=== PATIENT | female | born 1945 | race Caucasian/White ===

== ENCOUNTER 2024-04-11 10:31 | Outpatient (CLI) | payer MEDICARE, SELFPAY ==
[2024-04-11 11:26] LABS: Prothrombin Time 13.9 Seconds (11.1-14.7)
[2024-04-11 11:27] LABS: Partial Thromboplastin Time 32.1 Seconds (22.3-36.8)
[2024-04-11 11:34] LABS: Anion Gap 13 mmol/L (4-12); Blood Urea Nitrogen 23 mg/dL (7-17); Calcium 9.1 mg/dL (8.4-10.2); Carbon Dioxide 20 mmol/L (22-30); Chloride 100 mmol/L (98-107); Estimated Glomerular Filt Rate 34; Glucose 93 mg/dL (65-110); Potassium 4.3 mmol/L (3.4-5.0); Sodium 133 mmol/L (137-145)
== END 2024-04-11 10:32 | disposition home or self-care (01) ==
PROVIDERS: Anesthesiology; PCP Family Medicine; Visit Provider Obstetrics & Gynecology Gynecology
DX: Z01.818 Encounter for other preprocedural examination (principal); N19 Unspecified kidney failure; Z51.81 Encounter for therapeutic drug level monitoring
CPT/HCPCS: 36415; 80048; 85610; 85730

== ENCOUNTER 2024-04-14 00:16 | Day surgery (SDC) | payer MEDICARE, SELFPAY ==
[2024-04-10 10:28] VITALS: BMI 21.3
--- NOTE | 2024-04-10 11:11 | PC.NURSE ---
Report to the Outpatient Waiting Room, entrance under the green pavilion located off [facility], at time ___6:15AM____ on date __04/14/24 . Planned Procedure Time: __8:15AM . Time changes happen often and if your time is changed the preop area will call you the afternoon before. - You and your visitor will be asked to self-screen and do not enter if you have any COVID symptoms. - A mask is optional within the hospital at this time. Patients may have clear liquids (water, carbonated beverages, clear teas, apple juice) until 3 hours prior to surgery with a maximum of 20 ounces. - No food from midnight until time of surgery. Take the following medications with a SIP of water the morning of surgery: AMIODARONE, METOPROLOL, FLUOXETINE, LEVOTHYROXINE. MAY TAKE HYDROCODONE NEEDED FOR PAIN. DO NOT STOP ANY OF YOUR OTHER PRESCRIPTION MEDICATIONS PRIOR TO SURGERY ?EXCEPT THE FOLLOWING Medications to discontinue per physician HOLD ALL VITAMINS/SUPPLEMENTS 3 DAYS PRE-OP PER ANESTHESIA. Date to take last dose 04/10/24 Please no make-up, nail serbian, hairspray, perfume, deodorant, or body powder the day of surgery. No jewelry (including any body piercings) or valuables the day of surgery, leave them at home. Please take a shower or bath the night before, or the morning of, surgery with an antibacterial soap. Wear comfortable, loose fitting clothing. - Jewelry must be removed prior to entering the operating room. Rings and piercings that are not removed may be cut off. - The hospital will not accept responsibility for valuables. - Please leave all valuables, including medications, at home the day of surgery. If you are going home after surgery, a licensed regional flatbed truck driver must drive you home. - NO public transportation without another adult if you receive anesthesia. - We recommend that an adult stay with you for 24 hours following discharge. - We also recommend that you do not drive, make important decision, drink alcoholic beverages, or take any drugs that were not prescribed by your health care provider for at least 24 hours after your discharge time. Follow any additional instructions given to you from your surgeon. If you or anyone in your household have experienced Covid symptoms in the past week, please notify your surgeon or the nurse liaison at the phone number below for possible testing. Telephone instructions given to ____PATIENT and asked if any additional questions and then verbalized understanding. Patient advised to call surgeon office or pre surgery nurse liaison [phone] if any additional questions.
[2024-04-14 06:25] VITALS: BP 138/66; PULSE 73; RESP 14; TEMP 36.8; O2SAT 100; BMI 22.7
--- NOTE | 2024-04-14 07:20 | WPDHPUPDATE1 ---
History and Physical Update Update Date/Time: 04/14/24 07:20 History and Physical has been reviewed, including an updated exam of the patient. There are NO changes in the patient's condition. Risks, benefits, and alternatives have been discussed and questions answered. Patient agrees to proceed with procedure.
--- NOTE | 2024-04-14 07:20 | PM.HPGS ---
History of Present Illness History of Present Illness Consent: Risks, benefits, and alternatives have been discussed and questions answered. Patient agrees to proceed with procedure. Chief complaint: perineal scarring Narrative: Haritha Cavanaugh is a 78 year old female with complete labial agglutination. Patient has tried Estrace cream and there was been no separation. Plan is to proceed with surgical separation. Plan postop Estrace cream and crisco. The risks recurrence, injury to surrounding tissue, and infection were discussed. Patient voiced understanding and agrees to proceed. Review of Systems Review of Systems: not repeated day of surgery; patient states no changes in status [facility] Past Medical History Medical History (Updated 04/14/24 @ 07:25 by Alicia Aguilera MD) Atrial fibrillation Gout HTN (hypertension) Hypothyroid Migraines (normal spontaneous vaginal delivery) x2 Pacemaker placed 2023 Rectal vaginal fistula repair 2021 Surgical History Surgical History (Updated 04/14/24 @ 07:24 by Alicia Aguilera MD) Status post D&C Status post total abdominal hysterectomy and bilateral salpingo-oophorectomy Social History Social History Smoking status: Never smoker Living arrangements: alone Spiritual care concerns: No Meds Home Medications and Allergies Home Medications Medication Instructions Recorded Confirmed Type amiodarone 200 mg tablet 200 mg PO QAM 04/10/24 04/14/24 History aspirin 81 mg tablet,delayed 81 mg PO DAILY 04/10/24 04/10/24 History release (Adult Low Dose Aspirin) diclofenac sodium 1 % topical gel 1 g topical BID PRN Pain 04/10/24 04/10/24 History esomeprazole magnesium 40 mg 40 mg PO DAILY 04/10/24 04/10/24 History capsule,delayed release estradiol 0.01% (0.1 mg/gram) 1 appful vaginal BID 04/10/24 04/10/24 History vaginal cream fluoxetine 10 mg capsule 10 mg PO QAM 04/10/24 04/14/24 History hydrocodone 5 mg-acetaminophen 325 1 tablet PO Q6-8H PRN Pain 04/10/24 04/10/24 History mg tablet levothyroxine 75 mcg tablet 75 mcg PO QAM 04/10/24 04/14/24 History losartan 25 mg tablet 25 mg PO HS 04/10/24 04/10/24 History magnesium oxide 400 mg (241.3 mg 800 mg PO DAILY 04/10/24 04/10/24 History magnesium) tablet metoprolol succinate 50 mg 50 mg PO BID 04/10/24 04/14/24 History tablet,extended release 24 hr spironolactone 25 mg tablet 25 mg PO QAM 04/10/24 04/10/24 History tizanidine 2 mg tablet 2 mg PO TID PRN Muscle Spasm 04/10/24 04/10/24 History Allergies Allergy/AdvReac Type Severity Reaction Status Date / Time penicillin G Allergy Itching Verified 04/14/24 07:17 [id number] Reductase AdvReac Muscle Verified 04/14/24 07:17 Inhibitor Pain, fatigue, ahuja Exam Const: General: healthy appearing and alert Orientation/consciousness: patient oriented x3 Resp: Effort & Inspection: normal respiratory effort GI: GI Palp: Yes Soft to palpation, No Tenderness to palpation present (GI) and No Palpable mass present : External Female Exam: other ( complete fusion of all midline structures with agglutination) Neuro: General: patient oriented x3 Assessment and Plan Assessment and plan (1) Labia minora agglutination: Code(s): Q52.5 - Fusion of labia Status: Acute Assessment and Plan: complete fusion of the labia minora labia majora
[2024-04-14] MEDS: LACTATED RINGERS 1,000 ML 30 ML IV CONT (07:45)
--- NOTE | 2024-04-14 07:52 | WPDANESEPPF ---
Anes - Initial Pre Proc Eval Procedure: Operation Date: 04/14/24 08:15 Proposed Procedures p Perineal Revision - Alicia Aguilera MD Date/Time: 04/14/24 07:52 Surgeon: Alicia Aguilera MD Pre Op Diagnosis: perineal scarring Patient Data Age: 78 Gender: F Height: 1.57 m Weight: 56.45 kg Last Vital Signs Temp 98.2 F 04/14/24 06:25 Pulse 73 04/14/24 06:25 Resp 14 04/14/24 06:25 BP 138/66 04/14/24 06:25 Pulse Ox 100 04/14/24 06:25 O2 Del Method Room Air 04/14/24 06:25 Allergies Allergy/AdvReac Type Severity Reaction Status Date / Time penicillin G Allergy Itching Verified 04/14/24 07:17 [id number] Reductase AdvReac Muscle Verified 04/14/24 07:17 Inhibitor Pain, fatigue, ahuja Home Medications Medication Instructions Recorded Confirmed Type amiodarone 200 mg tablet 200 mg PO QAM 04/10/24 04/14/24 History aspirin 81 mg tablet,delayed 81 mg PO DAILY 04/10/24 04/10/24 History release (Adult Low Dose Aspirin) diclofenac sodium 1 % topical gel 1 g topical BID PRN Pain 04/10/24 04/10/24 History esomeprazole magnesium 40 mg 40 mg PO DAILY 04/10/24 04/10/24 History capsule,delayed release estradiol 0.01% (0.1 mg/gram) 1 appful vaginal BID 04/10/24 04/10/24 History vaginal cream fluoxetine 10 mg capsule 10 mg PO QAM 04/10/24 04/14/24 History hydrocodone 5 mg-acetaminophen 325 1 tablet PO Q6-8H PRN Pain 04/10/24 04/10/24 History mg tablet levothyroxine 75 mcg tablet 75 mcg PO QAM 04/10/24 04/14/24 History losartan 25 mg tablet 25 mg PO HS 04/10/24 04/10/24 History magnesium oxide 400 mg (241.3 mg 800 mg PO DAILY 04/10/24 04/10/24 History magnesium) tablet metoprolol succinate 50 mg 50 mg PO BID 04/10/24 04/14/24 History tablet,extended release 24 hr spironolactone 25 mg tablet 25 mg PO QAM 04/10/24 04/10/24 History tizanidine 2 mg tablet 2 mg PO TID PRN Muscle Spasm 04/10/24 04/10/24 History Patient hx anesthesia problems: none Family hx anesthesia problems: none Results Review: All pre-operative results and documents have been reviewed as part of the pre-operative evaluation. ON LICENSE OF [facility] Past Medical History Medical History Atrial fibrillation Gout HTN (hypertension) Hypothyroid Migraines (normal spontaneous vaginal delivery) x2 Pacemaker placed 2023 Rectal vaginal fistula repair 2021 Surgical History Surgical History Status post D&C Status post total abdominal hysterectomy and bilateral salpingo-oophorectomy Social History Social History Smoking status: Never smoker Living arrangements: alone Spiritual care concerns: No Anes - Eval Final PreProcedure Day of Procedure 04/14/24 07:52 Patient weight: normal Heart: regular rate and rhythm Lungs: clear to auscultation Airway: Mallampati scale and special considerations (Missing L upper incisor. ) Neurological: alert and oriented Last oral intake: >/= 8 hours ASA classification: III Emergent: no Anesthetic plan: proceed Anesthesia type and monitoring: general GIVS and standard monitoring Results Review: All pre-operative results and documents have been reviewed as part of the pre-operative evaluation. HTN, hypothyroidism, afib w pacemaker (CRMD form in chart), CRI. Informed Consent: The patient's anesthetic plan and its attendant risks and benefits were discussed with the patient/family/POA. Questions were solicited and answers provided to the satisfaction of the patient/family/POA.
[2024-04-14] MEDS: LIDOCAINE HCL 1% PF INJ 5 ML VIAL 10 ML INFILTRATE (08:17)
--- NOTE | 2024-04-14 08:38 | W.PM.PROC2 ---
Procedure Note - Detailed Date of Procedure 04/14/24 Pre-op Diagnosis Complete labial agglutination Post-op Diagnosis Same Procedure Performed separation labia and vagina Surgeon Alicia Aguilera MD Anesthesia MAC and Local Findings the external vulvar structures are completely fused with no visible opening Description of Procedure The patient is taken to the operating room and placed under anesthesia in the dorsal lithotomy position. She was prepped and draped externally. The visible line of agglutination is injected with 1% lidocaine. Using retraction on either side of the visible line the labia are at the top the lower portion required Metzenbaum scissors to start the separation. Once the separation was started it is able to be retracted. The upper structures retained normal anatomy and the urethra was now visible. Using Premarin cream on a sterile glove the vaginal opening is to approximately a depth 4cm. Minimal bleeding is encountered. Premarin cream is placed vaginally and over the external tissues. The patient was awakened from anesthesia and taken to recovery in stable condition. Estimated Blood Loss 5 Drains No Packing No Pathology None sent Complications No immediate complications Condition Stable Disposition PACU
[2024-04-14 08:40] VITALS: BP 102/52; PULSE 75; RESP 15; O2SAT 100
[2024-04-14 09:10] VITALS: BP 162/81; PULSE 75
[2024-04-14] MEDS: oxyCODONE (*CRX) 5 MG/5 ML ORAL SOLN IR PO (09:36)
[2024-04-14 09:40] VITALS: BP 149/75; PULSE 84
[2024-04-14 10:10] VITALS: BP 149/58; PULSE 83
== END 2024-04-14 10:34 | disposition home or self-care (01) ==
PROVIDERS: PCP Family Medicine; Visit Provider Obstetrics & Gynecology Gynecology
PROC: (CPT 56810; principal; 2024-04-14 08:15)
DX: Q52.5 Fusion of labia (principal); N90.89 Other specified noninflammatory disorders of vulva and perineum; I48.91 Unspecified atrial fibrillation; I10 Essential (primary) hypertension; E03.9 Hypothyroidism, unspecified; Z79.82 Long term (current) use of aspirin; Z79.891 Long term (current) use of opiate analgesic; Z95.0 Presence of cardiac pacemaker; Z98.890 Other specified postprocedural states
CPT/HCPCS: 56810; A9270; J2704; J3010; J7120